=== PATIENT | female | born 1985 ===

== ENCOUNTER 2018-04-14 15:59 | Emergency (ER) | payer OTHER ==
[2018-04-14 16:17] VITALS: TEMP 98.7
[2018-04-14 17:07] LABS: BASO # 0.1 K/uL (0.0-0.2); BASO % 0.7 % (0.0-2.0); EOS # 0.4 K/uL (0.0-0.7); EOS % 3.5 % (0.0-4.0); HEMOGLOBIN 13.6 g/dL (11.0-16.0); LYMPH # 3.4 K/uL (1.0-4.3); LYMPH % 27.4 % (20.0-40.0); MEAN CELL VOLUME 86.3 fL (81.0-99.0); MEAN CORPUSCULAR HGB CONC 33.6 g/dL (33.0-37.0); MEAN PLATELET VOLUME 7.9 fL (7.2-11.7); MONO # 0.9 K/uL (0.0-0.8); MONO % 7.1 % (0.0-10.0); NEUT # 7.7 K/uL (1.8-7.0); NEUT % 61.3 % (50.0-75.0); NRBC % 0.1 % (0.0-2.0); RBC 4.68 Mil/uL (3.80-5.20); RED CELL DISTRIBUTION WIDTH 13.6 % (11.5-14.5); WHITE BLOOD COUNT 12.5 K/uL (4.8-10.8)
[2018-04-14 17:10] LABS: HCG,QUALITATIVE URINE NEGATIVE (NEGATIVE)
[2018-04-14 17:13] LABS: SQUAMOUS EPITHIAL 10 /hpf (0-5); URINE BACTERIA RARE (<OCC); URINE BILIRUBIN NEGATIVE (NEGATIVE); URINE BLOOD 1+ (NEGATIVE); URINE CLARITY Clear (Clear); URINE COLOR Straw (YELLOW); URINE GLUCOSE (UA) NORMAL (Normal); URINE LEUKOCYTE ESTERASE 1+ Leu/uL (Negative); URINE PROTEIN NEGATIVE (NEGATIVE); URINE UROBILINOGEN NORMAL mg/dL (0.2-1.0)
[2018-04-14 17:25] LABS: ALB/GLOB RATIO 1.3 (1.0-2.1); ALBUMIN 4.7 g/dL (3.5-5.0); ALT/SGPT 19 U/L (9-52); AST/SGOT 18 U/L (14-36); BLOOD UREA NITROGEN 11 mg/dL (7-17); CALCIUM 8.8 mg/dl (8.6-10.4); GFR NON-AFRICAN AMERICAN > 60
[2018-04-14 17:28] VITALS: RESP 18; O2SAT 97
[2018-04-14 17:32] VITALS: BP 123/72; PULSE 84
--- NOTE | 2018-04-14 17:32 | RAD ---
Chest x-ray single frontal view HISTORY: Chest pain. COMPARISON: None available. Findings: Lung fu are clear. Heart size within normal limits. Bibasilar breast and nipple shadows. Impression: No focal infiltrate or effusion.
[2018-04-14 17:46] LABS: CK-MB < 0.22 ng/mL (0.0-3.38)
--- NOTE | 2018-04-14 18:01 | C.PDOC ---
History Of Present Illness 32 year old female presents to the emergency department with complaints of headache since this morning (which resolved), left arm pain, and a "squeezing" pain in the center of her chest which began as soon as she arrived to the ED. Fernando peralta has a history of HTN for which she compliantly takes Analopril. Patient denies shortness of breath, palpitations, visual changes, facial droop, slurred speech, extremity weakness, and sensory changes. Patient denies history of diabetes, HLD, [place], and smoking. Time Seen by Provider: 04/14/18 16:18 Chief Complaint (Nursing): Chest Pain History Per: Patient History/Exam Limitations: no limitations Onset/Duration Of Symptoms: Hrs Current Symptoms Are (Timing): Still Present Quality: Squeezing, "Pain" Past Medical History Reviewed: Historical Data, Nursing Documentation, Vital Signs Vital Signs: Last Vital Signs Temp 98.7 F 04/14/18 17:28 Pulse 84 04/14/18 17:28 Resp 18 04/14/18 17:28 BP 123/72 04/14/18 17:28 Pulse Ox 97 04/14/18 17:28 - Medical History PMH: HTN Denies: AMI-STEMI, Diabetes, Hyperlipidemia Surgical History: No Surg Hx Family History: States: No Known Family Hx - Social History Hx Alcohol Use: No Hx Substance Use: No - Immunization History Hx Tetanus Toxoid Vaccination: No Hx Influenza Vaccination: Yes (2018) Hx Pneumococcal Vaccination: No Review Of Systems Constitutional: Negative for: Other (facial droop) Cardiovascular: Positive for: Chest Pain ("squeezing"). Negative for: Palpitations Respiratory: Negative for: Shortness of Breath Musculoskeletal: Positive for: Arm Pain (left arm) Neurological: Positive for: Headache. Negative for: Weakness, Numbness, Change in Speech Physical Exam - Physical Exam Appears: Non-toxic, No Acute Distress Skin: Warm, Dry Head: Atraumatic, Normacephalic Eye(s): bilateral: Normal Inspection, PERRL, EOMI Nose: Normal Neck: Normal, Supple Chest: Symmetrical, No Tenderness Cardiovascular: Rhythm Regular, No Murmur Respiratory: No Rales, No Rhonchi, No Wheezing Gastrointestinal/Abdominal: Soft, No Tenderness, No Guarding, No Rebound Extremity: Normal ROM, No Tenderness (left arm) Neurological/Psych: Oriented x3, Normal Speech, Normal Cognition ED Course And Treatment - Laboratory Results Result Diagrams: 04/14/18 17:03 04/14/18 17:03 ECG: Interpreted By Me ECG Rhythm: Sinus Rhythm ECG Interpretation: Normal, No Acute Changes Rate From EC O2 Sat by Pulse Oximetry: 97 (RA) Pulse Ox Interpretation: Normal Disposition Counseled Patient/Family Regarding: Studies Performed, Diagnosis, Need For Followup - Disposition Referrals: [facility] [Outside] Disposition: HOME/ ROUTINE Disposition Time: 18:00 Condition: STABLE Additional Instructions: FOLLOW UP IN THE MEDICAL CLINIC IN 1-2 DAYS RETURN TO EMERGENCY ROOM IF YOU HAVE ANY CONCERNING SYMPTOMS SEGUIR EN LA CLNICA MDICA EN 1-2 CLARK VUELVA A LA MJ DE EMERGENCIA SI TIENE ALGUNA SESIN SOBRE LOS SNTOMAS Instructions: High Blood Pressure (DC) Forms: [facility] (Nepali), General Discharge Instructions Print Language: ZAMBIAN - Clinical Impression Clinical Impression: Evaluation by medical service required - Scribe Statement The provider has reviewed the documentation as recorded by the Scribe (Valdo Vasques) Provider Attestation: All medical record entries made by the Scribe were at my direction and personally dictated by me. I have reviewed the chart and agree that the record accurately reflects my personal performance of the history, physical exam, medical decision making, and the department course for this patient. I have also personally directed, reviewed, and agree with the discharge instructions and disposition.
--- NOTE | 2018-04-16 19:14 | CARD ---
APPROVED REPORT Date of service: 04/14/2018 EKG Measurement Heart [id number] <Conclusion> Normal sinus rhythm with sinus arrhythmia Normal ECG
== END 2018-04-14 18:15 | disposition home or self-care (01) ==
LOC: C.ER 15:59
DX: Z00.00 Encounter for general adult medical examination without abnormal findings (principal)